=== PATIENT | female | born 1980 | race Caucasian/White ===

== ENCOUNTER 2024-04-28 14:22 | Outpatient (CLI) | payer BC | END 2024-04-28 14:23 | disposition home or self-care (01) | LOC: SCSMRI 14:22 | PROVIDERS: ATTEND Internal Medicine Rheumatology | DX: M47.812 Spondylosis without myelopathy or radiculopathy, cervical region (principal); M48.8X2 Other specified spondylopathies, cervical region; G95.89 Other specified diseases of spinal cord | CPT/HCPCS: 72141 ==